=== PATIENT | female | born 1990 | race Two or more races ===

== ENCOUNTER 2018-06-30 14:51 | Emergency (ER) | payer MEDICAID ==
[~2018-06-30] VITALS: Ht 152.4 cm; Wt 50.0 kg
[2018-06-30 18:19] VITALS: BP 116/64
== END 2018-06-30 18:20 | disposition home or self-care (01) ==
LOC: ER 14:51
DX: J06.9 Acute upper respiratory infection, unspecified (principal)
CPT/HCPCS: 99281